=== PATIENT | female | born 1965 | race Two or more races ===

== ENCOUNTER → 2021-03-15 | Day surgery (SDC) | payer OTHER ==
[~2021-03-15] MED LIST: ALTACE10 MG PO; ATIVAN0.5 M1 PO; FOLIC ACID PO; GABAPENT PO; HUM; KEFLEX750 MG PO; KEPP PO; LAMICT PO; SIMVASTA PO; ULTRACET PO; VITAMIN B 12 PO; [UNRECOGNIZED DRUG - OTHER] PO
== END | disposition home or self-care (01) ==
LOC: ADM 03-08 09:15 → CIR.AMB 05:50
PROVIDERS: ATTEND Obstetrics & Gynecology Gynecology
DX: N32.81 Overactive bladder (principal); Z20.822 Contact with and (suspected) exposure to COVID-19
CPT/HCPCS: 64590; 64581; C1778; L8679